=== PATIENT | female | born 1950 | race Caucasian/White ===

== ENCOUNTER 2022-10-06 19:46 | Emergency (ER) | payer MEDICARE, OTHER ==
[~2022-10-06] VITALS: Ht 167 cm; Wt 75.0 kg
[2022-10-06] MEDS ORDERED: ACETAMINOPHEN 500 MG TAB (TYLENOL) PO ONE (20:15)
[2022-10-06] MEDS ORDERED: LACTATED RINGERS 1,000 ML IV ONE (20:15)
[2022-10-06] MEDS ORDERED: IBUPROFEN 800 MG (MOTRIN) TAB PO ONE (20:15)
[2022-10-06 20:25] LABS: BASOPHILS % (AUTO) 0 % (0-10); EOSINOPHILS % (AUTO) 0 % (0-10); HEMATOCRIT 46 % (35-52); HEMOGLOBIN 15.5 g/dL (11.5-16.0); LYMPHOCYTES # (AUTO) 0.8 10^3/uL (1.0-4.0); LYMPHOCYTES % (AUTO) 7 % (12-44); MEAN CORPUSCULAR HEMOGLOBIN 30 pg (25-34); MEAN CORPUSCULAR HGB CONC 34 g/dL (32-36); MEAN CORPUSCULAR VOLUME 87 fL (80-99); MONOCYTES # (AUTO) 0.7 10^3/uL (0.0-1.0); MONOCYTES % (AUTO) 7 % (0-12); NEUTROPHILS % (AUTO) 85 % (42-75); PLATELET COUNT 221 10^3/uL (130-400); WHITE BLOOD COUNT 10.6 10^3/uL (4.3-11.0)
--- NOTE | 2022-10-06 20:32 | ED Cough/URI ---
General Chief Complaint: Cough/Cold/Flu Symptoms Stated Complaint: INFLUENZA A+/BODYACHES/WEAKNESS/CONFUSED/SOA Nursing Triage Note: Patient was seen at [facility] today with complaints of cough, congestion and fever. Pt. was diagnosed with Flu A. Temp is currently 104.5 Source: patient (LIMITED HISTORIAN), family (SON-LIMITED HISTORIAN) History of Present Illness Date Seen by Provider: Oct 06, 2022 Time Seen by Provider: 20:00 Initial Comments PT ARRIVES VIA POV FROM HOME, WITH SON PT BEGAN GETTING SICK YESTERDAY WITH A SCRATCHY THROAT AND COUGH/CONGESTION SYMPTOMS WORSE TODAY SHE DROVE HERSELF TO [facility] --DOES NOT KNOW WHICH ONE SHE WENT TO--SHE THINKS "[place]" ( THERE IS NOT A [facility] IN [place]) SHE STATES SHE TESTED + FOR THE FLU, DOES NOT KNOW IF SHE WAS PRESCRIBED ANY MEDICATIONS OR NOT, BUT SHE HAS NOT TAKEN ANYTHING FOR ANY OF HER SYMPTOMS AT ANY TIME SHE HAS NOT CHECKED HER TEMP AT HOME AND WAS UNAWARE OF FEVER--TEMP IS 104.5 ON ARRIVAL HERE PT HAS HAD BODY ACHES, HEADACHE, GENERALIZED WEAKNESS, FEELING SHORT OF BREATH, AND FAMILY STATES SHE HAS BEEN DISORIENTED TONIGHT PT DENIES ANY GI SYMPTOMS, AND STATES SHE HAS BEEN DRINKING LIQUIDS AND VOIDING NORMALLY SHE MOVED HERE A FEW MONTHS AGO FROM [place], [place] SHE HAS BEEN TO [facility] TO ESTABLISH CARE, BUT DOES NOT KNOW WHICH ONE IT IS. SHE HAS HISTORY OF HTN SHE HAD BREAST CANCER APPROXIMATELY 15 YEARS AGO. BILAT MASTECTOMY ONLY. NO CHEMO, NO RADIATION SHE IS NON-SMOKER, NON-DRINKER DENIES ANY HISTORY OF RESPIRATORY PROBLEMS OR CARDIAC PROBLEMS OR DIABETES PCP: [facility] Allergies and Home Medications Allergies Coded Allergies: No Known Drug Allergies (Unverified , 10/06/22) Review of Systems Review of Systems Constitutional: see HPI, fever, malaise, weakness EENTM: see HPI, nose congestion, throat pain Respiratory: see HPI, cough, short of breath Cardiovascular: no symptoms reported; No chest pain Gastrointestinal: No abdominal pain, No diarrhea, No nausea, No vomiting Genitourinary: no symptoms reported; No decreased output Musculoskeletal: see HPI (BODY ACHES) Skin: no symptoms reported Psychiatric/Neurological: See HPI, Headache Hematologic/Lymphatic: No Symptoms Reported Immunological/Allergic: no symptoms reported Past [id number]-[id number]-[id number] Hx Patient Social History Tobacco Use?: No Smoking Status: Never a Smoker Smokeless Tobacco Frequency: Never a User Use of E-Cig and/or Vaping Too: Never a User Substance use?: No Alcohol Use?: No Past Medical History Surgeries: Yes (BILATERAL MASTECTOMY) Breast Respiratory: No Cardiac: Yes Hypertension Neurological: No BRUSH HAND History: Menopausal Genitourinary: No Gastrointestinal: No Musculoskeletal: No Endocrine: No HEENT: No Cancer: Yes Breast Did You Recieve Any Treatments: Yes What Type of Treatment Did You: Surgical Intervention BILATERAL MASTECTOMY APPROXIMATELY 15 YEARS AGO NO CHEMO OR RADIATION Psychosocial: No Integumentary: No Blood Disorders: No Physical Exam Vital Signs - First Documented 10/06/22 19:59 Temp 40.3 Pulse 134 Resp 20 B/P (MAP) 158/91 (113) Pulse Ox 95 O2 Delivery Room Air Capillary Refill : Less Than 3 Seconds Height: '" Weight: lbs. oz. kg; 26.00 BMI Method: General Appearance: WD/WN, no apparent distress, other (LETHARGIC, TALKS BUT GIVES MINIMAL ANSWERS. 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, no motor/sensory deficits, alert, normal mood/affect, oriented x 3 (BUT LIMITED MEMORY AT THIS TIME, ), other (GENERALIZED WEAKNESS, NO FOCAL DEFICITS) Skin: normal color, warm/dry, other (VERY WARM) Progress/Results/Core Measures Suspected Sepsis SIRS Temperature: Pulse: 134 Respiratory Rate: 20 Laboratory Tests 10/06/22 20:10: White Blood Count 10.6 Blood Pressure 158 /91 Mean: 113 Laboratory Tests 10/06/22 20:10: Creatinine 0.95, Platelet Count 221, Total Bilirubin 0.5 Results/Orders Lab Results Laboratory Tests Test 10/06/22 20:10 10/06/22 20:21 10/06/22 21:10 Range/Units White Blood Count 10.6 4.3-11.0 10^3/uL Red Blood Count 5.26 H 3.80-5.11 10^6/uL Hemoglobin 15.5 11.5-16.0 g/dL Hematocrit 46 35-52 % Mean Corpuscular Volume 87 80-99 fL Mean Corpuscular Hemoglobin 30 25-34 pg Mean Corpuscular Hemoglobin Concent 34 32-36 g/dL Red Cell Distribution Width 13.1 10.0-14.5 % Platelet Count 221 130-400 10^3/uL Mean Platelet Volume 10.0 9.0-12.2 fL Immature Granulocyte % (Auto) 0 % Neutrophils (%) (Auto) 85 H 42-75 % Lymphocytes (%) (Auto) 7 L 12-44 % Monocytes (%) (Auto) 7 0-12 % Eosinophils (%) (Auto) 0 0-10 % Basophils (%) (Auto) 0 0-10 % Neutrophils # (Auto) 9.0 H 1.8-7.8 10^3/uL Lymphocytes # (Auto) 0.8 L 1.0-4.0 10^3/uL Monocytes # (Auto) 0.7 0.0-1.0 10^3/uL Eosinophils # (Auto) 0.0 0.0-0.3 10^3/uL Basophils # (Auto) 0.0 0.0-0.1 10^3/uL Immature Granulocyte # (Auto) 0.0 0.0-0.1 10^3/uL Sodium Level 136 135-145 MMOL/L Potassium Level 3.3 L 3.6-5.0 MMOL/L Chloride Level 102 98-107 MMOL/L Carbon Dioxide Level 22 21-32 MMOL/L Anion Gap 12 5-14 MMOL/L Blood Urea Nitrogen 13 7-18 MG/DL Creatinine 0.95 0.60-1.30 MG/DL Estimat Glomerular Filtration Rate 64 BUN/Creatinine Ratio 14 Glucose Level 186 H 70-105 MG/DL Calcium Level 9.0 8.5-10.1 MG/DL Corrected Calcium 8.8 8.5-10.1 MG/DL Total Bilirubin 0.5 0.1-1.0 MG/DL Aspartate Amino Transf (AST/SGOT) 21 5-34 U/L Alanine Aminotransferase (ALT/SGPT) 24 0-55 U/L Alkaline Phosphatase 76 40-136 U/L Total Protein 7.5 6.4-8.2 GM/DL Albumin 4.3 3.2-4.5 GM/DL Influenza Type A (RT-PCR) Detected H Not Detecte Influenza Type B (RT-PCR) Not Detected Not Detecte SARS-CoV-2 RNA (RT-PCR) Not Detected Not Detecte Urine Color YELLOW Urine Clarity CLEAR Urine pH 5.5 5-9 Urine Specific Larsen >=1.030 1.016-1.022 Urine Protein 1+ H NEGATIVE Urine Glucose (UA) NEGATIVE NEGATIVE Urine Ketones 2+ H NEGATIVE Urine Nitrite NEGATIVE NEGATIVE Urine Bilirubin NEGATIVE NEGATIVE Urine Urobilinogen 0.2 < = 1.0 MG/DL Urine Leukocyte Esterase NEGATIVE NEGATIVE Urine RBC (Auto) 2+ H NEGATIVE Urine RBC 2-5 H /HPF Urine WBC 5-10 H /HPF Urine Squamous Epithelial Cells 0-2 /HPF Urine Crystals NONE /LPF Urine Bacteria FEW H /HPF Urine Casts PRESENT /LPF Urine Hyaline Casts 5-10 H /LPF Urine Mucus SMALL H /LPF Urine Culture Indicated YES My Orders Orders - OLGA PLATT DO Ed Iv/Invasive Line Start (10/06/22 20:03) Monitor-Rhythm Ecg Trace Only (10/06/22 20:03) Cbc With Automated Diff (10/06/22 20:03) Comprehensive Metabolic Panel (10/06/22 20:03) Ua Culture If Indicated (10/06/22 20:03) Ed Iv/Invasive Line Start (10/06/22 20:03) Lactated Ringers (Lr 1000 Ml Iv Solution (10/06/22 20:15) Acetaminophen Tablet (Tylenol Tablet) (10/06/22 20:15) Ibuprofen Tablet (Motrin Tablet) (10/06/22 20:15) Chest 1 View, Ap/Pa Only (10/06/22 20:03) Covid 19 Inhouse Test (10/06/22 20:08) Influenza A And B By Pcr (10/06/22 20:08) Isolation Central Supply Req (10/06/22 20:08) Urine Culture (10/06/22 21:10) Medications Given in ED Current Medications Medications Dose Ordered Sig/Baljeet Route Start Time Stop Time Status Last Admin Dose Admin Acetaminophen 1,000 mg ONCE ONCE PO 10/06/22 20:15 10/06/22 20:16 DC 10/06/22 20:11 1,000 MG Ibuprofen 800 mg ONCE ONCE PO 10/06/22 20:15 10/06/22 20:16 DC 10/06/22 20:11 800 MG Lactated Ringer's 1,000 ml @ 0 mls/hr Q0M ONCE IV 10/06/22 20:15 10/06/22 20:16 DC 10/06/22 20:11 0 MLS/HR Vital Signs/I&O 10/06/22 10/06/22 10/06/22 10/06/22 19:59 20:11 20:11 21:17 Temp 40.3 40.3 40.3 38.2 Pulse 134 Resp 20 B/P (MAP) 158/91 (113) Pulse Ox 95 O2 Delivery Room Air Capillary Refill : Less Than 3 Seconds Blood Pressure Mean: 113 Progress Note : Progress Note GIVEN: -IV FLUIDS -TYLENOL AND MOTRIN RARE COUGH NO DYSPNEA NO HYPOXIA--O2 SATS 95-96% ON ROOM AIR Diagnostic Imaging Comments CXR--PER RADIOLOGIST REPORT AT 210 Findings: Bibasilar ill-defined airspace opacities are greater on the right. No pleural effusion or pneumothorax. Normal heart size. Impression: Bilateral pulmonary opacities may be due to pneumonitis associated with viral infection. Reviewed: Reviewed by Me Departure Impression Primary Impression: Influenza A Additional Impressions: UTI (urinary tract infection) Hyperglycemia Disposition: 01 HOME, SELF-CARE Condition: Improved Departure-Patient Inst. Decision time for Depature: 21:34 Referrals: [facility] (PCP/Family) Primary Care Physician Patient Instructions: Flu, Adult ED, High Blood Sugar, Adult ED, Preventing the Spread of an Infectious Disease, Urinary Tract Infection, Adult ED Add. Discharge Instructions: LOTS OF CLEAR LIQUIDS--WATER, BROTH, JELLO, GATORADE DRINK ENOUGH SO YOU ARE URINATING EVERY 2-3 HOURS WHILE AWAKE CHECK YOUR TEMPERATURE EVERY 2-3 HOURS AND ALTERNATE TYLENOL AND MOTRIN EVERY 2- 3 HOURS FOR PAIN OR FEVER OVER 100 TAKE YOUR TAMIFLU TWICE A DAY EVERY DAY FOLLOW UP WITH [facility] IN 3-4 DAYS IF NO BETTER, RETURN TO ER IF SYMPTOMS WORSEN All discharge instructions reviewed with patient and/or family. Voiced understanding. Scripts Benzonatate (TESSALON PERLES) 100 Mg Capsule 200 MG PO TID, #50 CAP Prov: OLGA PLATT DO 10/06/22 Guaifenesin/Dextromethorphan (Mucinex Dm ER 1,200-60 mg Tab) 1,200 Mg-60 Mg Tbmp.12hr 1 EACH PO BID, #20 EA Prov: OLGA PLATT DO 10/06/22 Nitrofurantoin Monohyd/M-Cryst (Macrobid 100 mg Capsule) 100 Mg Capsule 1 TAB PO BID, #20 CAP Prov: OLGA PLATT DO 10/06/22 OLGA PLATT DO Oct 06, 2022 20:32
[2022-10-06 20:36] LABS: ALBUMIN 4.3 GM/DL (3.2-4.5); POTASSIUM 3.3 MMOL/L (3.6-5.0)
[2022-10-06 20:38] LABS: TOTAL PROTEIN 7.5 GM/DL (6.4-8.2)
[2022-10-06 20:40] LABS: BILIRUBIN,TOTAL 0.5 MG/DL (0.1-1.0)
[2022-10-06 20:42] LABS: CREATININE SERUM 0.95 MG/DL (0.60-1.30)
--- NOTE | 2022-10-06 20:50 | Diagnostic Imaging Report ---
Chest 1 view, AP/PA only Indication: Fever, cough. Comparison: None available. Findings: Bibasilar ill-defined airspace opacities are greater on the right. No pleural effusion or pneumothorax. Normal heart size. Impression: Bilateral pulmonary opacities may be due to pneumonitis associated with viral infection. Dictated by: Dictated on workstation # [id number]
[2022-10-06 21:22] LABS: BILIRUBIN,URINE NEGATIVE (NEGATIVE); CLARITY,URINE CLEAR; COLOR,URINE YELLOW; GLUCOSE, URINE (UA) NEGATIVE (NEGATIVE); KETONES,URINE 2+ (NEGATIVE); LEUKOCYTE ESTERASE ,URINE NEGATIVE (NEGATIVE); NITRITE,URINE NEGATIVE (NEGATIVE); PH,URINE 5.5 (5-9); PROTEIN,URINE 1+ (NEGATIVE)
[2022-10-06 21:31] LABS: BACTERIA,URINE FEW /HPF; SQUAMOUS EPITHELIAL CELL,UR 0-2 /HPF
[2022-10-06] MEDS ORDERED: GUAI1TBM19 PO (21:38)
[2022-10-06] MEDS ORDERED: NITR-65 PO (21:38)
[2022-10-06] MEDS ORDERED: BENZ100C18 PO (21:38)
[2022-10-06 21:40] VITALS: BP 129/64
== END 2022-10-06 21:44 | disposition home or self-care (01) ==
LOC: ER 19:53
DX: J10.89 Influenza due to other identified influenza virus with other manifestations (principal); N39.0 Urinary tract infection, site not specified; R73.9 Hyperglycemia, unspecified; Z20.822 Contact with and (suspected) exposure to COVID-19
CPT/HCPCS: 36415; 71045; 80053; 81000; 85025; 87088; 87636; 93041